=== PATIENT | female | born 1975 | race African-American/Black ===

== ENCOUNTER 2017-01-26 09:41 | Emergency (ER) | payer MEDICAID ==
[~2017-01-26] VITALS: Ht 175.3 cm; Wt 65.0 kg
[2017-01-26 11:35] VITALS: BP 142/88
== END 2017-01-26 12:27 | disposition home or self-care (01) ==
LOC: ER 12:27
DX: R05 Cough (principal); R06.02 Shortness of breath; F17.210 Nicotine dependence, cigarettes, uncomplicated; Z88.0 Allergy status to penicillin; F14.10 Cocaine abuse, uncomplicated
CPT/HCPCS: 71010; 81025; 99283

== ENCOUNTER 2017-03-04 15:36 | Emergency (ER) | payer MEDICAID ==
[~2017-03-04] VITALS: Ht 165.1 cm; Wt 60.0 kg
[2017-03-04 15:38] VITALS: BP 167/113
== END 2017-03-04 17:38 | disposition home or self-care (01) ==
LOC: ER 16:36
DX: A63.0 Anogenital (venereal) warts (principal); J04.0 Acute laryngitis; I10 Essential (primary) hypertension; F14.90 Cocaine use, unspecified, uncomplicated; Z88.0 Allergy status to penicillin
CPT/HCPCS: 99282

== ENCOUNTER 2017-05-01 17:30 | Emergency (ER) | payer MEDICAID, OTHER ==
[~2017-05-01] VITALS: Ht 175.3 cm; Wt 67.0 kg
[2017-05-01] MEDS ORDERED: IBUPROFEN 600MG TABLET PO STA (18:43)
[2017-05-01 19:25] LABS: BASOPHILS % 3.7 % (0.0-2.0); EOSINOPHILS % 6.7 % (0.0-5.0); HEMATOCRIT. 28.6 % (36.0-48.0); LYMPHOCYTES % 27.2 % (20.0-50.0); MEAN CORPUSCULAR HEMOGLOBIN 23.4 pg (28.0-32.0); MEAN CORPUSCULAR VOLUME 74.2 fL (81.0-99.0); MEAN PLATELET VOLUME 7.6 fl (7.4-10.4); MONOCYTES % 14.8 % (2.0-8.0); NEUTROPHILS % 47.6 % (40.0-76.0); PLATELET 443 x1000/uL (130-400); RED BLOOD CELL COUNT 3.85 mill/uL (4.2-5.4); RED CELL DISTRIBUTION WIDTH 19.4 % (11.6-14.6)
[2017-05-01 19:26] LABS: CHLORIDE 105 mEq/L (98-107)
[2017-05-01 19:31] LABS: CARBON DIOXIDE 26 mEq/L (21-32)
[2017-05-01 19:35] LABS: CREATINE KINASE 176 IU/L (26-192)
[2017-05-01] MEDS ORDERED: AMLODIPINE 5MG TABLET PO ONE (21:45)
[2017-05-01 22:23] VITALS: BP 168/110
== END 2017-05-01 22:23 | disposition home or self-care (01) ==
LOC: ER 17:30
DX: I16.0 Hypertensive urgency (principal); J45.909 Unspecified asthma, uncomplicated; I10 Essential (primary) hypertension; Z88.0 Allergy status to penicillin
CPT/HCPCS: 36415; 80053; 82550; 85025; 93005; 99285

== ENCOUNTER 2017-06-11 12:00 | Emergency (ER) | payer OTHER ==
[~2017-06-11] VITALS: Ht 175.3 cm; Wt 67.0 kg
[2017-06-11 13:13] VITALS: BP 120/88
== END 2017-06-11 13:30 | disposition home or self-care (01) ==
LOC: ER 12:25
DX: S70.361A Insect bite (nonvenomous), right thigh, initial encounter (principal); J45.909 Unspecified asthma, uncomplicated; I10 Essential (primary) hypertension; F17.200 Nicotine dependence, unspecified, uncomplicated; F11.10 Opioid abuse, uncomplicated; Z88.0 Allergy status to penicillin; W57.XXXA Bitten or stung by nonvenomous insect and other nonvenomous arthropods, initial encounter; Y93.89 Activity, other specified; Y92.89 Other specified places as the place of occurrence of the external cause; Y99.8 Other external cause status
CPT/HCPCS: 99283

== ENCOUNTER 2017-12-24 12:29 | Emergency (ER) | payer OTHER ==
[~2017-12-24] VITALS: Ht 175.3 cm; Wt 58.0 kg
[2017-12-24 12:57] VITALS: BP 118/98
== END 2017-12-24 15:30 | disposition left against medical advice (07) ==
LOC: ER 13:43
DX: N64.4 Mastodynia (principal); I10 Essential (primary) hypertension; J45.909 Unspecified asthma, uncomplicated; F17.200 Nicotine dependence, unspecified, uncomplicated; Z88.0 Allergy status to penicillin
CPT/HCPCS: 81025; 99282

== ENCOUNTER 2018-11-23 20:01 | Emergency (ER) | payer MEDICAID, OTHER ==
[~2018-11-23] VITALS: Ht 175.3 cm; Wt 70.0 kg
[2018-11-23] MEDS ORDERED: PREDNISONE 20MG TABLET PO STA (20:39)
[2018-11-23] MEDS ORDERED: ALBUTEROL (0.083%) 2.5MG/3ML NEB HHN STA (20:39)
[2018-11-23] MEDS ORDERED: IPRATROPIUM BROMIDE (0.02%) 0.5MG/2.5ML NEB HHN STA (20:39)
[2018-11-23] MEDS ORDERED: ENALAPRIL 5MG TABLET PO SCH (20:45)
[2018-11-23 23:40] VITALS: BP 168/98
== END 2018-11-23 23:41 | disposition home or self-care (01) ==
LOC: ER 22:39
DX: J45.901 Unspecified asthma with (acute) exacerbation (principal); I16.0 Hypertensive urgency; I10 Essential (primary) hypertension; F17.200 Nicotine dependence, unspecified, uncomplicated; Z88.0 Allergy status to penicillin
CPT/HCPCS: 71045; 81025; 94640; 99283; J7512; J7611

== ENCOUNTER 2019-04-13 22:43 | Inpatient (IN) | payer MEDICAID, OTHER ==
[~2019-04-13] VITALS: Ht 165.1 cm; Wt 66.7 kg
[2019-04-13] MEDS ORDERED: SODIUM CHLORIDE 0.9% 1,000 ML IV ONE (23:10)
[2019-04-13] MEDS ORDERED: FAMOTIDINE 20MG/2ML VIAL IV ONE (23:15)
[2019-04-13] MEDS ORDERED: DIPHENHYDRAMINE 50MG/ML VIAL IV ONE (23:15)
[2019-04-13] MEDS ORDERED: ONDANSETRON HCL 4MG/2ML INJ IV ONE (23:15)
[2019-04-13] MEDS ORDERED: DEXAMETHASONE 10 MG/ML VIAL IV ONE (23:15)
[2019-04-13] MEDS ORDERED: ETOMIDATE 2MG/ML 10ML VIAL IV ONE ×2 (23:43→23:45)
[2019-04-13] MEDS ORDERED: SUCCINYLCHOLINE CHLORIDE 200MG/10ML IV ONE ×2 (23:43→23:45)
[2019-04-13] MEDS ORDERED: MIDAZOLAM HCL 50 MG in DEXTROSE 5% WATER 40 ML IV ONE (23:45)
[2019-04-13] MEDS ORDERED: PROPOFOL 10MG/ML 100ML 100 ML IV ONE (23:45)
[2019-04-13 23:56] LABS: HEMOGLOBIN. 8.5 g/dL (12.0-16.0); MEAN PLATELET VOLUME 7.9 fl (7.4-10.4)
[2019-04-14] VITALS (75 sets, daily range): BP systolic 111–168; BP diastolic 66–105
[2019-04-14 00:04] LABS: CHLORIDE 104 mEq/L (98-107)
[2019-04-14 00:09] LABS: BASOPHILS % 3.7 % (0.0-2.0); HEMATOCRIT. 26.5 % (36.0-48.0); LYMPHOCYTES % 33.2 % (20.0-50.0); MEAN CORPUSCULAR HEMOGLOBIN 23.4 pg (28.0-32.0); MEAN CORPUSCULAR VOLUME 73.2 fL (81.0-99.0); MONOCYTES % 11.6 % (2.0-8.0); NEUTROPHILS % 46.5 % (40.0-76.0); PLATELET 542 x1000/uL (130-400); RED BLOOD CELL COUNT 3.63 mill/uL (4.2-5.4); RED CELL DISTRIBUTION WIDTH 18.6 % (11.6-14.6)
[2019-04-14 01:18] LABS: BG BASE EXCESS -5.2 mmol/L (-2.0-2.0); BG CARBOXYHEMOGLOBIN 1.9 % (0.5-1.5); BG DEOXYHEMOGLOBIN 5.3 % (0.0-5.0); BG FRACTION INSPIRED OXYGEN 40; BG HCO3 ACT 21.1 mmol/L (22.0-26.0); BG METHEMOGLOBIN 0.3 % (0.0-1.5); BG OXYGEN SATURATION 94.6 % (92.0-98.5); BG OXYHEMOGLOBIN 92.5 % (94.0-97.0); BG PCO2 44.8 mmHg (35.0-45.0); BG PH 7.291 (7.350-7.450); BG PO2 84.8 mmHg (75.0-100.0); BG SAMPLE SITE RIGHT RADIAL; BG TIDAL VOLUME(mL) 400 mL; BG TOTAL HEMOGLOBIN 10.1 g/dL (12.0-18.0); BG VENT MODE VENT - A/C; BG VENT RATE 16 set
[2019-04-14] MEDS ORDERED: MIDAZOLAM HCL 50 MG in DEXTROSE 5% WATER 40 ML IV ONE ×2 (01:45→02:00)
[2019-04-14] MEDS ORDERED: FENTANYL CITRATE/PF 500 MCG in SODIUM CHLORIDE 0.9% 40 ML IV PRN ×4 (02:00)
[2019-04-14] MEDS ORDERED: PROPOFOL 10MG/ML 100ML 100 ML IV ONE (03:30)
[2019-04-14] MEDS ORDERED: PHENYLEPHRINE 40 MG in DEXT 5% WATER 246 ML IV PRN (06:00)
[2019-04-14] MEDS ORDERED: NOREPINEPHRINE 16 MG in DEXT 5% WATER 234 ML IV PRN (06:00)
[2019-04-14] MEDS ORDERED: MIDAZOLAM HCL 100 MG in DEXT 5% WATER 80 ML IV PRN (06:00)
[2019-04-14] MEDS ORDERED: MAGNESIUM/ALUMINUM HYDROXIDE/SIMETHICONE 30ML UDC PO PRN (06:45)
[2019-04-14] MEDS ORDERED: DIPHENHYDRAMINE 50MG/ML VIAL IV PRN (06:45)
[2019-04-14] MEDS ORDERED: ONDANSETRON HCL 4MG/2ML INJ IV PRN (06:45)
[2019-04-14] MEDS ORDERED: DOCUSATE SODIUM 100MG CAPSULE PO PRN (06:45)
[2019-04-14] MEDS ORDERED: GUAIFENESIN 200MG/10ML SUGAR FREE UDC PO PRN (06:45)
[2019-04-14] MEDS: METHYLPREDNISOLONE SOD SUCC 125 MG/2 ML VIAL IV SCH ×4 (06:52→23:46)
[2019-04-14] MEDS: PROPOFOL 10MG/ML 100ML 100 ML IV PRN ×2 (07:42→11:50)
[2019-04-14] MEDS ORDERED: FAMOTIDINE 20MG/2ML VIAL IV SCH (09:00)
[2019-04-14] MEDS: MIDAZOLAM HCL 50 MG in DEXTROSE 5% WATER 40 ML IV PRN (09:07)
[2019-04-14 10:55] LABS: BG BASE EXCESS -3.3 mmol/L (-2.0-2.0); BG DEOXYHEMOGLOBIN 4.3 % (0.0-5.0); BG FRACTION INSPIRED OXYGEN 40; BG HCO3 ACT 21.5 mmol/L (22.0-26.0); BG METHEMOGLOBIN 0.3 % (0.0-1.5); BG OXYGEN SATURATION 95.7 % (92.0-98.5); BG OXYHEMOGLOBIN 95.4 % (94.0-97.0); BG PCO2 37.6 mmHg (35.0-45.0); BG PH 7.375 (7.350-7.450); BG PO2 83.8 mmHg (75.0-100.0); BG SAMPLE SITE RIGHT RADIAL; BG TIDAL VOLUME(mL) 450 mL; BG TOTAL HEMOGLOBIN 8.7 g/dL (12.0-18.0); BG VENT MODE VENT - A/C; BG VENT RATE 18 set
[2019-04-14] MEDS: FENTANYL CITRATE/PF 500 MCG in SODIUM CHLORIDE 0.9% 40 ML IV PRN ×3 (10:55→17:47)
[2019-04-14] MEDS ORDERED: POTASSIUM CHLORIDE 20MEQ/PACKET NG NR (11:00)
[2019-04-14] MEDS ORDERED: PROPOFOL 10MG/ML 100ML 100 ML IV PRN (11:30)
[2019-04-14] MEDS: DIPHENHYDRAMINE 50MG/ML VIAL IV SCH ×4 (11:49→23:46)
[2019-04-14 13:53] LABS: CLARITY URINE CLOUDY (CLEAR); COLOR URINE YELLOW (YELLOW); KETONES URINE NEGATIVE (NEGATIVE); LEUKOCYTE ESTERASE URINE NEGATIVE (NEGATIVE); NITRITE URINE NEGATIVE (NEGATIVE); OCCULT BLOOD URINE 2+ (NEGATIVE); PH URINE 5.5 (4.5-8.0); PROTEIN URINE NEGATIVE (NEGATIVE); SPECIFIC GRAVITY URINE 1.018 (1.005-1.030); UROBILINOGEN URINE 0.2 E.U./dL (0.2-1.0)
[2019-04-14 14:25] LABS: *AMPHETAMINES SCREEN URINE NEGATIVE (NEGATIVE); *BARBITURATES SCREEN URINE NEGATIVE (NEGATIVE)
[2019-04-14 14:26] LABS: CANNABINOID URINE SCREEN NEGATIVE (NEGATIVE); METHADONE URINE SCREEN NEGATIVE (NEGATIVE); OPIATES URINE SCREEN NEGATIVE (NEGATIVE); PHENCYCLIDINE URINE SCREEN NEGATIVE (NEGATIVE)
[2019-04-14 14:31] LABS: *BENZODIAZEPINES SCREEN URINE PRESUMTIVE POSITIVE (NEGATIVE); *COCAINE SCREEN URINE PRESUMTIVE POSITIVE (NEGATIVE)
[2019-04-14 14:59] LABS: CHLORIDE 109 mEq/L (98-107)
[2019-04-14 15:04] LABS: PHOSPHORUS 3.8 mg/dL (2.5-4.9)
[2019-04-14 15:05] LABS: HCG SCREEN NEGATIVE
[2019-04-14 15:08] LABS: CREATINE KINASE MB FRACTION 1.5 ng/mL (0.5-3.6)
[2019-04-14] MEDS: MONTELUKAST SODIUM 10MG TABLET NG SCH ×2 (16:11→21:40)
[2019-04-14] MEDS: LORAZEPAM 2MG/ML CPJ IV PRN (16:26)
[2019-04-14] MEDS ORDERED: ENOXAPARIN 40MG/0.4ML SYR SUBCUT SCH (18:00)
[2019-04-14] MEDS: FAMOTIDINE 20MG/2ML VIAL IV SCH (21:40)
[2019-04-14 23:23] LABS: TOTAL IRON BINDING CAPACITY 415 ug/dL (250-450)
[2019-04-14 23:26] LABS: CREATINE KINASE 97 IU/L (26-192)
[2019-04-14 23:27] LABS: CREATINE KINASE MB FRACTION < 1.0 ng/mL (0.5-3.6)
[2019-04-15] VITALS (94 sets, daily range): BP systolic 119–150; BP diastolic 64–101
[2019-04-15] MEDS: DIPHENHYDRAMINE 50MG/ML VIAL IV SCH ×6 (03:31→23:30)
[2019-04-15] MEDS: PROPOFOL 10MG/ML 100ML 100 ML IV PRN ×2 (03:42→15:41)
[2019-04-15] MEDS: FENTANYL CITRATE/PF 500 MCG in SODIUM CHLORIDE 0.9% 40 ML IV PRN ×2 (03:48→15:42)
[2019-04-15 05:03] LABS: CHLORIDE 108 mEq/L (98-107)
[2019-04-15 05:07] LABS: BASOPHILS % 0.1 % (0.0-2.0); HEMATOCRIT. 24.9 % (36.0-48.0); HEMOGLOBIN. 7.7 g/dL (12.0-16.0); LYMPHOCYTES % 7.7 % (20.0-50.0); MEAN CORPUSCULAR HEMOGLOBIN 22.8 pg (28.0-32.0); MEAN PLATELET VOLUME 8.2 fl (7.4-10.4); MONOCYTES % 4.9 % (2.0-8.0); NEUTROPHILS % 87.3 % (40.0-76.0); PLATELET 491 x1000/uL (130-400); RED BLOOD CELL COUNT 3.36 mill/uL (4.2-5.4); RED CELL DISTRIBUTION WIDTH 18.9 % (11.6-14.6)
[2019-04-15 05:13] LABS: LDL CHOLESTEROL 81 mg/dL (5-100)
[2019-04-15 05:14] LABS: HDL CHOLESTEROL 92 mg/dL (40-59)
[2019-04-15] MEDS: METHYLPREDNISOLONE SOD SUCC 125 MG/2 ML VIAL IV SCH ×4 (06:03→23:40)
[2019-04-15] MEDS: FAMOTIDINE 20MG/2ML VIAL IV SCH ×2 (08:17→20:47)
[2019-04-15 09:40] LABS: BG BASE EXCESS -0.8 mmol/L (-2.0-2.0); BG CARBOXYHEMOGLOBIN 0.7 % (0.5-1.5); BG DEOXYHEMOGLOBIN 2.9 % (0.0-5.0); BG FRACTION INSPIRED OXYGEN 40; BG HCO3 ACT 23.9 mmol/L (22.0-26.0); BG METHEMOGLOBIN 0.3 % (0.0-1.5); BG OXYGEN SATURATION 97.1 % (92.0-98.5); BG OXYHEMOGLOBIN 96.1 % (94.0-97.0); BG PCO2 39.4 mmHg (35.0-45.0); BG PH 7.401 (7.350-7.450); BG PO2 104.1 mmHg (75.0-100.0); BG SAMPLE SITE LEFT RADIAL; BG TIDAL VOLUME(mL) 450 mL; BG TOTAL HEMOGLOBIN 5.9 g/dL (12.0-18.0); BG VENT MODE VENT - A/C; BG VENT RATE 18 set
[2019-04-15] MEDS: IPRATROPIUM/ALBUTEROL 0.5-3(2.5)MG/3ML NEB HHN PRN (20:28)
[2019-04-15] MEDS: MONTELUKAST SODIUM 10MG TABLET NG SCH (20:47)
[2019-04-16] VITALS (42 sets, daily range): BP systolic 124–178; BP diastolic 70–105
[2019-04-16] MEDS: PROPOFOL 10MG/ML 100ML 100 ML IV PRN (02:12)
[2019-04-16] MEDS: DIPHENHYDRAMINE 50MG/ML VIAL IV SCH ×5 (03:24→20:19)
[2019-04-16] MEDS: IPRATROPIUM/ALBUTEROL 0.5-3(2.5)MG/3ML NEB HHN PRN ×4 (04:34→14:22)
[2019-04-16] MEDS: METHYLPREDNISOLONE SOD SUCC 125 MG/2 ML VIAL IV SCH ×3 (05:55→18:13)
[2019-04-16 06:05] LABS: HEMATOCRIT. 24.5 % (36.0-48.0); HEMOGLOBIN. 7.6 g/dL (12.0-16.0); MEAN CORPUSCULAR HEMOGLOBIN 22.8 pg (28.0-32.0); PLATELET 465 x1000/uL (130-400); RED BLOOD CELL COUNT 3.36 mill/uL (4.2-5.4); RED CELL DISTRIBUTION WIDTH 18.7 % (11.6-14.6)
[2019-04-16 06:11] LABS: CHLORIDE 107 mEq/L (98-107)
[2019-04-16 08:14] LABS: PLATELET ESTIMATE INCREASED
[2019-04-16] MEDS: FENTANYL CITRATE/PF 500 MCG in SODIUM CHLORIDE 0.9% 40 ML IV PRN (08:16)
[2019-04-16] MEDS: SODIUM CHLORIDE 0.9% 1,000 ML IV SCH ×2 (08:18→22:56)
[2019-04-16] MEDS: FAMOTIDINE 20MG/2ML VIAL IV SCH ×2 (08:19→21:13)
[2019-04-16] MEDS ORDERED: CEFEPIME 1,000 MG in DEXTROSE 5% WATER 50 ML IV SCH (09:00)
[2019-04-16 09:12] LABS: BG BASE EXCESS 1.5 mmol/L (-2.0-2.0); BG CARBOXYHEMOGLOBIN 0.3 % (0.5-1.5); BG DEOXYHEMOGLOBIN 2.3 % (0.0-5.0); BG FRACTION INSPIRED OXYGEN 40; BG HCO3 ACT 26.1 mmol/L (22.0-26.0); BG METHEMOGLOBIN 0.4 % (0.0-1.5); BG OXYGEN SATURATION 97.7 % (92.0-98.5); BG PCO2 41.2 mmHg (35.0-45.0); BG PO2 105.1 mmHg (75.0-100.0); BG SAMPLE SITE RIGHT RADIAL; BG TIDAL VOLUME(mL) 450 mL; BG TOTAL HEMOGLOBIN 8.3 g/dL (12.0-18.0); BG VENT MODE VENT - A/C; BG VENT RATE 18 set
[2019-04-16] MEDS: MIDAZOLAM HCL 50 MG in DEXTROSE 5% WATER 40 ML IV PRN ×2 (12:40→23:03)
[2019-04-16] MEDS: CLONIDINE 0.1MG TABLET PO PRN (16:34)
[2019-04-16] MEDS: HYDRALAZINE HCL 50MG TABLET PO SCH ×2 (18:13→21:13)
[2019-04-16] MEDS: IRON SUCROSE COMPLEX 100 MG/5 ML ML IV SCH (20:19)
[2019-04-16] MEDS: MONTELUKAST SODIUM 10MG TABLET NG SCH (21:13)
[2019-04-16] MEDS: AMLODIPINE 5MG TABLET PO SCH (21:13)
[2019-04-17] VITALS (43 sets, daily range): BP systolic 58–196; BP diastolic 30–128
[2019-04-17] MEDS: DIPHENHYDRAMINE 50MG/ML VIAL IV SCH ×7 (00:22→23:40)
[2019-04-17] MEDS: METHYLPREDNISOLONE SOD SUCC 125 MG/2 ML VIAL IV SCH ×5 (02:01→23:40)
[2019-04-17] MEDS: FENTANYL CITRATE/PF 500 MCG in SODIUM CHLORIDE 0.9% 40 ML IV PRN (05:28)
[2019-04-17 05:41] LABS: HEMATOCRIT. 23.8 % (36.0-48.0); HEMOGLOBIN. 7.5 g/dL (12.0-16.0); MEAN CORPUSCULAR HEMOGLOBIN 23.3 pg (28.0-32.0); MEAN CORPUSCULAR VOLUME 73.6 fL (81.0-99.0); MEAN PLATELET VOLUME 7.9 fl (7.4-10.4); PLATELET 365 x1000/uL (130-400); RED BLOOD CELL COUNT 3.23 mill/uL (4.2-5.4); RED CELL DISTRIBUTION WIDTH 18.6 % (11.6-14.6)
[2019-04-17 05:42] LABS: CHLORIDE 106 mEq/L (98-107)
[2019-04-17 07:28] LABS: PLATELET ESTIMATE NORMAL
[2019-04-17] MEDS: IPRATROPIUM/ALBUTEROL 0.5-3(2.5)MG/3ML NEB HHN PRN ×2 (08:53→12:17)
[2019-04-17] MEDS: FAMOTIDINE 20MG/2ML VIAL IV SCH ×2 (08:54→20:37)
[2019-04-17] MEDS: HYDRALAZINE HCL 50MG TABLET PO SCH ×2 (08:54→20:38)
[2019-04-17 09:25] LABS: BG BASE EXCESS 2.7 mmol/L (-2.0-2.0); BG CARBOXYHEMOGLOBIN 0.3 % (0.5-1.5); BG FRACTION INSPIRED OXYGEN 40; BG HCO3 ACT 27.5 mmol/L (22.0-26.0); BG METHEMOGLOBIN 0.3 % (0.0-1.5); BG OXYHEMOGLOBIN 94.4 % (94.0-97.0); BG PCO2 43.6 mmHg (35.0-45.0); BG PH 7.418 (7.350-7.450); BG PO2 79.8 mmHg (75.0-100.0); BG SAMPLE SITE RIGHT RADIAL; BG TIDAL VOLUME(mL) 450 mL; BG TOTAL HEMOGLOBIN 8.3 g/dL (12.0-18.0); BG VENT MODE VENT - A/C; BG VENT RATE 18 set
[2019-04-17] MEDS: AMLODIPINE 5MG TABLET PO SCH ×2 (09:46→20:38)
[2019-04-17 11:42] LABS: BG BASE EXCESS 1.5 mmol/L (-2.0-2.0); BG CARBOXYHEMOGLOBIN 0.3 % (0.5-1.5); BG DEOXYHEMOGLOBIN 4.4 % (0.0-5.0); BG FRACTION INSPIRED OXYGEN 40; BG HCO3 ACT 25.8 mmol/L (22.0-26.0); BG METHEMOGLOBIN 0.2 % (0.0-1.5); BG OXYGEN SATURATION 95.6 % (92.0-98.5); BG OXYHEMOGLOBIN 95.1 % (94.0-97.0); BG PCO2 38.8 mmHg (35.0-45.0); BG PO2 82.7 mmHg (75.0-100.0); BG PRESSURE SUPPORT 8; BG SAMPLE SITE RIGHT BRACHIAL; BG TOTAL HEMOGLOBIN 8.2 g/dL (12.0-18.0); BG VENT MODE VENT - CPAP
[2019-04-17] MEDS ORDERED: RACEPINEPHRINE 2.25% 0.5ML NEB VIAL HHN PRN (12:00)
[2019-04-17] MEDS: CLONIDINE 0.1MG TABLET PO PRN (12:13)
[2019-04-17] MEDS: LORAZEPAM 2MG/ML CPJ IV PRN (14:15)
[2019-04-17] MEDS: SODIUM CHLORIDE 0.9% 1,000 ML IV SCH ×2 (17:39→22:32)
[2019-04-17] MEDS: MONTELUKAST SODIUM 10MG TABLET NG SCH (20:38)
[2019-04-17] MEDS: IRON SUCROSE COMPLEX 100 MG/5 ML ML IV SCH (20:38)
[2019-04-17] MEDS: ACETAMINOPHEN 325MG TABLET PO PRN (22:30)
[2019-04-18] VITALS (23 sets, daily range): BP systolic 109–182; BP diastolic 69–103
[2019-04-18] MEDS: DIPHENHYDRAMINE 50MG/ML VIAL IV SCH ×3 (04:15→11:09)
[2019-04-18] MEDS: ACETAMINOPHEN 325MG TABLET PO PRN ×2 (04:39→11:09)
[2019-04-18 05:44] LABS: HEMATOCRIT. 23.9 % (36.0-48.0); HEMOGLOBIN. 7.4 g/dL (12.0-16.0); MEAN CORPUSCULAR HEMOGLOBIN 22.9 pg (28.0-32.0); MEAN CORPUSCULAR VOLUME 73.9 fL (81.0-99.0); MEAN PLATELET VOLUME 8.5 fl (7.4-10.4); PLATELET 331 x1000/uL (130-400); RED BLOOD CELL COUNT 3.23 mill/uL (4.2-5.4); RED CELL DISTRIBUTION WIDTH 18.5 % (11.6-14.6)
[2019-04-18] MEDS: METHYLPREDNISOLONE SOD SUCC 125 MG/2 ML VIAL IV SCH ×2 (06:04→11:09)
[2019-04-18] MEDS: SODIUM CHLORIDE 0.9% 1,000 ML IV SCH (06:06)
[2019-04-18 06:07] LABS: CHLORIDE 103 mEq/L (98-107)
[2019-04-18] MEDS: FAMOTIDINE 20MG/2ML VIAL IV SCH (08:50)
[2019-04-18] MEDS: AMLODIPINE 5MG TABLET PO SCH (08:50)
[2019-04-18] MEDS: HYDRALAZINE HCL 50MG TABLET PO SCH (08:50)
[2019-04-18 09:05] LABS: PLATELET ESTIMATE NORMAL
[2019-04-18 09:48] LABS: BG BASE EXCESS 5.8 mmol/L (-2.0-2.0); BG CARBOXYHEMOGLOBIN 0.2 % (0.5-1.5); BG DEOXYHEMOGLOBIN 6.4 % (0.0-5.0); BG FRACTION INSPIRED OXYGEN 21; BG METHEMOGLOBIN 0.3 % (0.0-1.5); BG OXYGEN SATURATION 93.6 % (92.0-98.5); BG OXYHEMOGLOBIN 93.1 % (94.0-97.0); BG PCO2 42.2 mmHg (35.0-45.0); BG PO2 71.4 mmHg (75.0-100.0); BG SAMPLE SITE RIGHT BRACHIAL; BG TOTAL HEMOGLOBIN 8.8 g/dL (12.0-18.0); BG VENT MODE ROOM AIR
[2019-04-18] MEDS: IPRATROPIUM/ALBUTEROL 0.5-3(2.5)MG/3ML NEB HHN PRN (14:23)
[2019-04-18] MEDS ORDERED: HYDR-4135 PO (15:55)
[2019-04-18] MEDS ORDERED: AMLO5TAB88 PO (15:57)
[2019-04-18] MEDS ORDERED: PREDNISONE 20MG TABLET PO SCH (18:20)
== END 2019-04-18 16:21 | disposition home or self-care (01) | DRG 811 ==
LOC: ER 22:43 → EDBEDREQTM 23:36 → EDBEDREQSVC 23:36 → EDBEDREQ 23:36 → CVICU 04-14 02:09 → EDBEDREQ 04-14 02:14 → EDBEDREQDT 04-14 02:14 → EDBEDREQTM 04-14 02:14 → ENRESERV 04-14 03:15
PROVIDERS: ADMIT Internal Medicine; ATTEND Internal Medicine
PROC: 5A1945Z Respiratory Ventilation, 24-96 Consecutive Hours (ICD-10-PCS; principal; 2019-04-14)
PROC: 0BH17EZ Insertion of Endotracheal Airway into Trachea, Via Natural or Artificial Opening (ICD-10-PCS; 2019-04-14)
PROC: 30233K1 Transfusion of Nonautologous Frozen Plasma into Peripheral Vein, Percutaneous Approach (ICD-10-PCS; 2019-04-14)
DX: T78.3XXA Angioneurotic edema, initial encounter (principal); J96.00 Acute respiratory failure, unspecified whether with hypoxia or hypercapnia; T78.02XA Anaphylactic reaction due to shellfish (crustaceans), initial encounter; D50.9 Iron deficiency anemia, unspecified; E87.6 Hypokalemia; F14.10 Cocaine abuse, uncomplicated; F17.200 Nicotine dependence, unspecified, uncomplicated; I10 Essential (primary) hypertension; J45.909 Unspecified asthma, uncomplicated; T46.4X5A Adverse effect of angiotensin-converting-enzyme inhibitors, initial encounter; Z88.1 Allergy status to other antibiotic agents; Z88.9 Allergy status to unspecified drugs, medicaments and biological substances; X58.XXXA Exposure to other specified factors, initial encounter; Y93.89 Activity, other specified; Y92.89 Other specified places as the place of occurrence of the external cause; Y99.8 Other external cause status
CPT/HCPCS: 31500; 36415; 36600; 51702; 71045; 80048; 80061; 80305; 82375; 82550; 82553; 82728; 82805; 82962; 83540; 83550; 83735; 84100; 84443; 84478; 84703; 86850; 86900; 86927; 87070; 93005; 93970; 94002; 94003; 94640; 96361; 96374; 96375; 96376; 99291; J0330; J0692; J1100; J1200; J1650; J2250; J2405; J2704; J2930; J3010; J3490; J7030; J7060; J7620; P9017

== ENCOUNTER 2019-06-28 12:45 | Inpatient (IN) | payer MEDICAID ==
[~2019-06-28] VITALS: Ht 175.3 cm; Wt 67.6 kg
[~2019-06-28 12:45] MED LIST: AMLO5TAB88 PO; HYDR-4135 PO
[2019-06-28] MEDS ORDERED: ACETAMINOPHEN 325MG TABLET PO STA (13:06)
[2019-06-28] MEDS ORDERED: SODIUM CHLORIDE 0.9% 1,000 ML IV ONE (13:06)
[2019-06-28] MEDS ORDERED: ONDANSETRON HCL 4MG/2ML INJ IV ONE (13:30)
[2019-06-28] MEDS ORDERED: LEVOFLOXACIN 500MG PREMIX 100 ML IV ONE (14:15)
[2019-06-28 15:02] LABS: CHLORIDE 102 mEq/L (98-107); HEMOGLOBIN. 8.9 g/dL (12.0-16.0); MEAN CORPUSCULAR HEMOGLOBIN 24.6 pg (28.0-32.0); MEAN CORPUSCULAR VOLUME 77.3 fL (81.0-99.0); PLATELET 313 x1000/uL (130-400); RED BLOOD CELL COUNT 3.62 mill/uL (4.2-5.4); RED CELL DISTRIBUTION WIDTH 19.5 % (11.6-14.6)
[2019-06-28 15:06] LABS: ETHANOL BLOOD < 10 mg/dL
[2019-06-28 15:13] LABS: CLARITY URINE CLEAR (CLEAR); COLOR URINE YELLOW (YELLOW); KETONES URINE NEGATIVE (NEGATIVE); LEUKOCYTE ESTERASE URINE NEGATIVE (NEGATIVE); NITRITE URINE NEGATIVE (NEGATIVE); OCCULT BLOOD URINE NEGATIVE (NEGATIVE); PH URINE 8.5 (4.5-8.0); PROTEIN URINE NEGATIVE (NEGATIVE); SPECIFIC GRAVITY URINE 1.013 (1.005-1.030); UROBILINOGEN URINE 0.2 E.U./dL (0.2-1.0)
[2019-06-28 15:44] LABS: PLATELET ESTIMATE NORMAL
[2019-06-28 15:53] LABS: METHADONE URINE SCREEN NEGATIVE (NEGATIVE); OPIATES URINE SCREEN NEGATIVE (NEGATIVE); PHENCYCLIDINE URINE SCREEN NEGATIVE (NEGATIVE)
[2019-06-28 15:54] LABS: CANNABINOID URINE SCREEN NEGATIVE (NEGATIVE)
[2019-06-28 15:56] LABS: *BENZODIAZEPINES SCREEN URINE NEGATIVE (NEGATIVE)
[2019-06-28 16:01] LABS: *AMPHETAMINES SCREEN URINE NEGATIVE (NEGATIVE); *BARBITURATES SCREEN URINE NEGATIVE (NEGATIVE)
[2019-06-28 16:08] LABS: *COCAINE SCREEN URINE PRESUMTIVE POSITIVE (NEGATIVE)
[2019-06-28] MEDS ORDERED: ALBUTEROL (0.083%) 2.5MG/3ML NEB HHN ONE (16:45)
[2019-06-29] VITALS: BP 120/79
[2019-06-29] MEDS ORDERED: ACETAMINOPHEN 650MG/20.3ML UDC PO PRN
[2019-06-29] MEDS ORDERED: ONDANSETRON HCL 4MG TABLET PO PRN
[2019-06-29] MEDS ORDERED: POTASSIUM CHLORIDE 20MEQ TABLET SR PO SCH
[2019-06-29 01:00] VITALS: BP 154/74
[2019-06-29] MEDS: SODIUM CHLORIDE 0.9% 1,000 ML IV SCH ×2 (01:00→15:25)
[2019-06-29] MEDS: HYDROCODONE/ACETAMINOPHEN 5/325MG TABLET PO PRN ×4 (01:29→15:37)
[2019-06-29] MEDS: IPRATROPIUM/ALBUTEROL 0.5-3(2.5)MG/3ML NEB HHN SCH ×6 (01:31→20:20)
[2019-06-29 04:00] VITALS: BP 109/76
[2019-06-29 08:56] VITALS: BP 104/67
[2019-06-29] MEDS: ENOXAPARIN 40MG/0.4ML SYR SUBCUT SCH ×2 (09:03→09:04)
[2019-06-29] MEDS ORDERED: METHYLPREDNISOLONE SOD SUCC 125 MG/2 ML VIAL IV NR (10:00)
[2019-06-29 12:05] LABS: HEMATOCRIT. 27.1 % (36.0-48.0); HEMOGLOBIN. 8.6 g/dL (12.0-16.0); MEAN CORPUSCULAR HEMOGLOBIN 24.4 pg (28.0-32.0); MEAN CORPUSCULAR VOLUME 77.3 fL (81.0-99.0); MEAN PLATELET VOLUME 7.9 fl (7.4-10.4); PLATELET 293 x1000/uL (130-400); RED BLOOD CELL COUNT 3.51 mill/uL (4.2-5.4); RED CELL DISTRIBUTION WIDTH 19.7 % (11.6-14.6)
[2019-06-29 12:33] LABS: CHLORIDE 105 mEq/L (98-107)
[2019-06-29 12:34] LABS: CHLORIDE 105 mEq/L (98-107)
[2019-06-29 12:59] LABS: PLATELET ESTIMATE NORMAL
[2019-06-29] MEDS ORDERED: LEVOFLOXACIN 500MG PREMIX 100 ML IV SCH (15:00)
[2019-06-29 15:30] VITALS: BP 121/79
[2019-06-29] MEDS: GUAIFENESIN/CODEINE 200-20MG/10ML UDC PO PRN (16:49)
[2019-06-29] MEDS: METHYLPREDNISOLONE SOD SUCC 40 MG/ML VIAL IV SCH (18:10)
[2019-06-29 20:00] VITALS: BP 133/77
[2019-06-30 00:37] VITALS: BP 134/81
[2019-06-30] MEDS: GUAIFENESIN/CODEINE 200-20MG/10ML UDC PO PRN ×2 (00:43→11:53)
[2019-06-30] MEDS: HYDROCODONE/ACETAMINOPHEN 5/325MG TABLET PO PRN ×3 (00:44→19:52)
[2019-06-30] MEDS: IPRATROPIUM/ALBUTEROL 0.5-3(2.5)MG/3ML NEB HHN SCH ×6 (01:01→20:54)
[2019-06-30] MEDS: METHYLPREDNISOLONE SOD SUCC 40 MG/ML VIAL IV SCH ×3 (01:29→17:57)
[2019-06-30 04:00] VITALS: BP 146/73
[2019-06-30] MEDS: SODIUM CHLORIDE 0.9% 1,000 ML IV SCH ×2 (05:12→18:04)
[2019-06-30 07:03] LABS: HEMATOCRIT. 26.6 % (36.0-48.0); HEMOGLOBIN. 8.7 g/dL (12.0-16.0); MEAN CORPUSCULAR HEMOGLOBIN 25.1 pg (28.0-32.0); MEAN CORPUSCULAR VOLUME 77.2 fL (81.0-99.0); MEAN PLATELET VOLUME 8.4 fl (7.4-10.4); PLATELET 344 x1000/uL (130-400); RED BLOOD CELL COUNT 3.45 mill/uL (4.2-5.4); RED CELL DISTRIBUTION WIDTH 19.7 % (11.6-14.6)
[2019-06-30 07:08] LABS: CHLORIDE 105 mEq/L (98-107)
[2019-06-30 08:00] VITALS: BP 139/67
[2019-06-30 12:00] VITALS: BP 149/91
[2019-06-30] MEDS ORDERED: DIPHENHYDRAMINE 50MG/ML VIAL IV PRN (14:00)
[2019-06-30 15:30] LABS: PLATELET ESTIMATE NORMAL
[2019-06-30] MEDS: CEFEPIME 2,000 MG in DEXT 5% WATER 100 ML IV SCH (15:54)
[2019-06-30 16:00] VITALS: BP 157/95
[2019-06-30] MEDS: CLONIDINE 0.1MG TABLET PO PRN (18:02)
[2019-06-30 20:00] VITALS: BP 169/98
[2019-07-01] VITALS: BP 171/87
[2019-07-01] MEDS: CLONIDINE 0.1MG TABLET PO PRN ×2 (00:54→05:51)
[2019-07-01] MEDS: ZOLPIDEM TARTRATE 5MG TABLET PO PRN ×2 (01:12→21:37)
[2019-07-01] MEDS: IPRATROPIUM/ALBUTEROL 0.5-3(2.5)MG/3ML NEB HHN SCH ×6 (01:26→21:18)
[2019-07-01 04:00] VITALS: BP 163/93
[2019-07-01] MEDS: METHYLPREDNISOLONE SOD SUCC 40 MG/ML VIAL IV SCH ×2 (05:51→18:03)
[2019-07-01] MEDS: CEFEPIME 2,000 MG in DEXT 5% WATER 100 ML IV SCH ×2 (05:52→18:03)
[2019-07-01 06:11] LABS: HIV SCREEN 4G Non Reactive (Non Reactive)
[2019-07-01] MEDS: SODIUM CHLORIDE 0.9% 1,000 ML IV SCH ×2 (06:47→18:31)
[2019-07-01 07:45] LABS: HEMATOCRIT. 25.7 % (36.0-48.0); MEAN CORPUSCULAR HEMOGLOBIN 24.2 pg (28.0-32.0); MEAN CORPUSCULAR VOLUME 77.9 fL (81.0-99.0); MEAN PLATELET VOLUME 8.5 fl (7.4-10.4); PLATELET 363 x1000/uL (130-400); RED BLOOD CELL COUNT 3.29 mill/uL (4.2-5.4); RED CELL DISTRIBUTION WIDTH 20.4 % (11.6-14.6)
[2019-07-01 08:00] VITALS: BP 158/95
[2019-07-01 08:00] LABS: CHLORIDE 104 mEq/L (98-107)
[2019-07-01] MEDS: ENOXAPARIN 40MG/0.4ML SYR SUBCUT SCH (08:59)
[2019-07-01] MEDS: HYDROCODONE/ACETAMINOPHEN 5/325MG TABLET PO PRN ×3 (09:01→18:23)
[2019-07-01 12:00] VITALS: BP 150/83
[2019-07-01 12:20] LABS: PLATELET ESTIMATE NORMAL
[2019-07-01 16:00] VITALS: BP 171/89
[2019-07-01 20:00] VITALS: BP 151/88
[2019-07-02] VITALS: BP 176/101
[2019-07-02] MEDS: IPRATROPIUM/ALBUTEROL 0.5-3(2.5)MG/3ML NEB HHN SCH ×5 (00:15→15:19)
[2019-07-02] MEDS: CLONIDINE 0.1MG TABLET PO PRN ×2 (00:56→14:00)
[2019-07-02 04:00] VITALS: BP 157/92
[2019-07-02] MEDS: METHYLPREDNISOLONE SOD SUCC 40 MG/ML VIAL IV SCH (06:25)
[2019-07-02] MEDS: CEFEPIME 2,000 MG in DEXT 5% WATER 100 ML IV SCH (06:25)
[2019-07-02] MEDS: HYDROCODONE/ACETAMINOPHEN 5/325MG TABLET PO PRN ×2 (06:34→13:59)
[2019-07-02 08:00] VITALS: BP 145/89
[2019-07-02] MEDS: SODIUM CHLORIDE 0.9% 1,000 ML IV SCH (08:59)
[2019-07-02] MEDS: ENOXAPARIN 40MG/0.4ML SYR SUBCUT SCH (09:00)
[2019-07-02] MEDS ORDERED: AMLODIPINE 5MG TABLET PO SCH (13:00)
[2019-07-02 15:15] VITALS: BP 172/103
== END 2019-07-02 16:45 | disposition home or self-care (01) | DRG 720 ==
LOC: ER 12:45 → 6WST 18:23 → ENRESERV 20:12
PROVIDERS: ADMIT Internal Medicine; ATTEND Internal Medicine
DX: A41.9 Sepsis, unspecified organism (principal); J96.01 Acute respiratory failure with hypoxia; J45.901 Unspecified asthma with (acute) exacerbation; F14.10 Cocaine abuse, uncomplicated; E87.6 Hypokalemia; J18.9 Pneumonia, unspecified organism; I10 Essential (primary) hypertension; F17.200 Nicotine dependence, unspecified, uncomplicated; T38.0X5A Adverse effect of glucocorticoids and synthetic analogues, initial encounter; Y92.89 Other specified places as the place of occurrence of the external cause; Z88.0 Allergy status to penicillin; Z88.8 Allergy status to other drugs, medicaments and biological substances
CPT/HCPCS: 36415; 71045; 80048; 80305; 80320; 81003; 84145; 87389; 87804; 93970; 94640; 96374; 99285; C1893; J0692; J1650; J1956; J2405; J2920; J2930; J7030; J7040; J7060; J7611; J7620; G0480

== ENCOUNTER 2019-07-22 11:08 | Emergency (ER) | payer MEDICAID ==
[~2019-07-22] VITALS: Ht 167.6 cm; Wt 59.0 kg
[2019-07-22 12:33] LABS: CHLORIDE 103 mEq/L (98-107); HEMOGLOBIN. 8.8 g/dL (12.0-16.0); MEAN CORPUSCULAR HEMOGLOBIN 24.1 pg (28.0-32.0); MEAN CORPUSCULAR VOLUME 76.5 fL (81.0-99.0); MEAN PLATELET VOLUME 7.5 fl (7.4-10.4); PLATELET 432 x1000/uL (130-400); RED BLOOD CELL COUNT 3.66 mill/uL (4.2-5.4); RED CELL DISTRIBUTION WIDTH 19.3 % (11.6-14.6)
[2019-07-22 12:49] LABS: PLATELET ESTIMATE INCREASED
[2019-07-22 15:44] VITALS: BP 127/86
== END 2019-07-22 15:38 | disposition home or self-care (01) ==
LOC: ER 11:08
DX: L03.116 Cellulitis of left lower limb (principal); F14.10 Cocaine abuse, uncomplicated; J45.909 Unspecified asthma, uncomplicated; I10 Essential (primary) hypertension; Z88.0 Allergy status to penicillin; Z88.8 Allergy status to other drugs, medicaments and biological substances; F17.290 Nicotine dependence, other tobacco product, uncomplicated
CPT/HCPCS: 36415; 80048; 85025; 99283; 99406; Z7610

== ENCOUNTER 2019-11-12 12:55 | Emergency (ER) | payer MEDICAID ==
[~2019-11-12] VITALS: Ht 170.2 cm; Wt 66.0 kg
[2019-11-12 15:39] LABS: CHLORIDE 103 mEq/L (98-107)
[2019-11-12 15:45] LABS: EOSINOPHILS % 2.8 % (0.0-5.0); HEMATOCRIT. 27.2 % (36.0-48.0); HEMOGLOBIN. 8.8 g/dL (12.0-16.0); LYMPHOCYTES % 19.4 % (20.0-50.0); MEAN CORPUSCULAR HEMOGLOBIN 23.7 pg (28.0-32.0); MEAN CORPUSCULAR VOLUME 73.2 fL (81.0-99.0); MEAN PLATELET VOLUME 8.1 fl (7.4-10.4); NEUTROPHILS % 61.8 % (40.0-76.0); PLATELET 348 x1000/uL (130-400); RED BLOOD CELL COUNT 3.72 mill/uL (4.2-5.4)
[2019-11-12 15:55] LABS: B-HCG QUANTITATIVE < 1 mIU/mL (<3)
[2019-11-12 16:30] LABS: *AMPHETAMINES SCREEN URINE NEGATIVE (NEGATIVE); *BENZODIAZEPINES SCREEN URINE NEGATIVE (NEGATIVE); METHADONE URINE SCREEN NEGATIVE (NEGATIVE); OPIATES URINE SCREEN NEGATIVE (NEGATIVE)
[2019-11-12 16:31] LABS: *BARBITURATES SCREEN URINE NEGATIVE (NEGATIVE); PHENCYCLIDINE URINE SCREEN NEGATIVE (NEGATIVE)
[2019-11-12] MEDS ORDERED: SODIUM CHLORIDE 0.9% 1,000 ML IV ONE (16:31)
[2019-11-12 16:35] LABS: *COCAINE SCREEN URINE PRESUMTIVE POSITIVE (NEGATIVE); CANNABINOID URINE SCREEN PRESUMTIVE POSITIVE (NEGATIVE)
[2019-11-12 17:35] VITALS: BP 113/59
== END 2019-11-12 17:37 | disposition home or self-care (01) ==
LOC: ER 12:55
DX: N93.9 Abnormal uterine and vaginal bleeding, unspecified (principal); I10 Essential (primary) hypertension; J45.909 Unspecified asthma, uncomplicated
CPT/HCPCS: 36415; 76856; 80053; 80305; 81025; 84702; 85025; 86850; 86900; 86901; 99284; J7030

== ENCOUNTER 2020-05-04 22:11 | Inpatient (IN) | payer MEDICAID ==
[~2020-05-04] VITALS: Ht 175.3 cm; Wt 69.9 kg
[2020-05-04] MEDS ORDERED: CLONIDINE 0.2MG TABLET PO NR (23:00)
[2020-05-05 00:10] LABS: HEMATOCRIT. 28.7 % (36.0-48.0); HEMOGLOBIN. 9.4 g/dL (12.0-16.0); LYMPHOCYTES % 28.4 % (20.0-50.0); MEAN CORPUSCULAR HEMOGLOBIN 26.4 pg (28.0-32.0); MEAN CORPUSCULAR VOLUME 80.8 fL (81.0-99.0); MEAN PLATELET VOLUME 8.2 fl (7.4-10.4); MONOCYTES % 14.1 % (2.0-8.0); NEUTROPHILS % 47.5 % (40.0-76.0); PLATELET 241 x1000/uL (130-400); RED BLOOD CELL COUNT 3.55 mill/uL (4.2-5.4); RED CELL DISTRIBUTION WIDTH 17.4 % (11.6-14.6)
[2020-05-05 00:15] LABS: CHLORIDE 106 mEq/L (98-107)
[2020-05-05 00:19] LABS: CLARITY URINE CLEAR (CLEAR); COLOR URINE YELLOW (YELLOW); KETONES URINE NEGATIVE (NEGATIVE); LEUKOCYTE ESTERASE URINE NEGATIVE (NEGATIVE); NITRITE URINE NEGATIVE (NEGATIVE); OCCULT BLOOD URINE NEGATIVE (NEGATIVE); PH URINE 7.5 (4.5-8.0); PROTEIN URINE NEGATIVE (NEGATIVE); SPECIFIC GRAVITY URINE 1.007 (1.005-1.030)
[2020-05-05 00:25] LABS: HCG SCREEN NEGATIVE
[2020-05-05] MEDS ORDERED: ONDANSETRON HCL 4MG/2ML INJ IV PRN (08:00)
[2020-05-05] MEDS ORDERED: DOCUSATE SODIUM 100MG CAPSULE PO PRN (08:00)
[2020-05-05] MEDS ORDERED: LORAZEPAM 0.5MG TABLET PO PRN (08:00)
[2020-05-05] MEDS ORDERED: ACETAMINOPHEN 325MG TABLET PO PRN (08:00)
[2020-05-05] MEDS ORDERED: CLONIDINE 0.1MG TABLET PO PRN (08:00)
[2020-05-05] MEDS ORDERED: POTASSIUM CHLORIDE 20MEQ TABLET SR PO NR (17:45)
[2020-05-05] MEDS: DEXAMETHASONE 4MG TABLET PO SCH (19:21)
[2020-05-05] MEDS: ENOXAPARIN 40MG/0.4ML SYR SUBCUT SCH (20:00)
[2020-05-05 21:42] LABS: TOTAL IRON BINDING CAPACITY 446 ug/dL (250-450)
[2020-05-06 01:00] VITALS: BP 135/90
[2020-05-06 04:00] VITALS: BP 123/71
[2020-05-06] MEDS: HYDROCODONE/ACETAMINOPHEN 5/325MG TABLET PO PRN ×4 (06:17→21:09)
[2020-05-06 06:59] LABS: BASOPHILS % 0.4 % (0.0-2.0); HEMOGLOBIN. 9.8 g/dL (12.0-16.0); LYMPHOCYTES % 9.6 % (20.0-50.0); MEAN CORPUSCULAR HEMOGLOBIN 26.3 pg (28.0-32.0); MEAN CORPUSCULAR VOLUME 80.5 fL (81.0-99.0); MEAN PLATELET VOLUME 8.7 fl (7.4-10.4); MONOCYTES % 3.7 % (2.0-8.0); NEUTROPHILS % 86.3 % (40.0-76.0); PLATELET 311 x1000/uL (130-400); RED BLOOD CELL COUNT 3.73 mill/uL (4.2-5.4); RED CELL DISTRIBUTION WIDTH 17.5 % (11.6-14.6)
[2020-05-06 07:11] LABS: CHLORIDE 104 mEq/L (98-107)
[2020-05-06 08:00] VITALS: BP 112/63
[2020-05-06] MEDS: HYDRALAZINE HCL 50MG TABLET PO SCH ×2 (08:13→16:01)
[2020-05-06] MEDS: AMLODIPINE 5MG TABLET PO SCH (08:13)
[2020-05-06] MEDS: DEXAMETHASONE 4MG TABLET PO SCH (08:14)
[2020-05-06] MEDS ORDERED: METHYLPREDNISOLONE SOD SUCC 40 MG/ML VIAL IV SCH (10:00)
[2020-05-06] MEDS: IPRATROPIUM/ALBUTEROL 0.5-3(2.5)MG/3ML NEB HHN SCH ×3 (11:46→20:43)
[2020-05-06 12:00] VITALS: BP 140/68
[2020-05-06] MEDS: GUAIFENESIN-DM 200MG-20MG/10ML UDC PO PRN ×2 (12:01→16:02)
[2020-05-06] MEDS: METHYLPREDNISOLONE SOD SUCC 40 MG/ML VIAL IV SCH ×2 (13:50→21:08)
[2020-05-06] MEDS: IRON SUCROSE COMPLEX 100 MG/5 ML ML IV SCH (13:59)
[2020-05-06 16:00] VITALS: BP 123/83
[2020-05-06 17:37] LABS: *AMPHETAMINES SCREEN URINE NEGATIVE (NEGATIVE); *BARBITURATES SCREEN URINE NEGATIVE (NEGATIVE); *BENZODIAZEPINES SCREEN URINE NEGATIVE (NEGATIVE)
[2020-05-06 17:38] LABS: CANNABINOID URINE SCREEN NEGATIVE (NEGATIVE); METHADONE URINE SCREEN NEGATIVE (NEGATIVE); PHENCYCLIDINE URINE SCREEN NEGATIVE (NEGATIVE)
[2020-05-06 17:42] LABS: *COCAINE SCREEN URINE PRESUMTIVE POSITIVE (NEGATIVE); OPIATES URINE SCREEN PRESUMTIVE POSITIVE (NEGATIVE)
[2020-05-06 20:00] VITALS: BP 140/74
[2020-05-06] MEDS: ENOXAPARIN 40MG/0.4ML SYR SUBCUT SCH (21:08)
[2020-05-07] VITALS: BP 161/90
[2020-05-07] MEDS: HYDROCODONE/ACETAMINOPHEN 5/325MG TABLET PO PRN ×3 (00:52→18:07)
[2020-05-07 04:00] VITALS: BP 118/76
[2020-05-07] MEDS: METHYLPREDNISOLONE SOD SUCC 40 MG/ML VIAL IV SCH ×3 (05:49→22:17)
[2020-05-07 07:33] LABS: CHLORIDE 106 mEq/L (98-107)
[2020-05-07 07:39] LABS: HEMATOCRIT. 30.5 % (36.0-48.0); HEMOGLOBIN. 9.6 g/dL (12.0-16.0); MEAN CORPUSCULAR HEMOGLOBIN 25.5 pg (28.0-32.0); MEAN CORPUSCULAR VOLUME 81.3 fL (81.0-99.0); MEAN PLATELET VOLUME 8.9 fl (7.4-10.4); PLATELET 298 x1000/uL (130-400); RED BLOOD CELL COUNT 3.75 mill/uL (4.2-5.4); RED CELL DISTRIBUTION WIDTH 17.7 % (11.6-14.6)
[2020-05-07] MEDS: IPRATROPIUM/ALBUTEROL 0.5-3(2.5)MG/3ML NEB HHN SCH ×5 (08:37→20:17)
[2020-05-07] MEDS: IRON SUCROSE COMPLEX 100 MG/5 ML ML IV SCH (09:26)
[2020-05-07] MEDS: HYDRALAZINE HCL 50MG TABLET PO SCH ×2 (09:26→17:58)
[2020-05-07] MEDS: AMLODIPINE 5MG TABLET PO SCH (09:27)
[2020-05-07 12:00] VITALS: BP 125/69
[2020-05-07 15:37] LABS: PLATELET ESTIMATE NORMAL
[2020-05-07 16:00] VITALS: BP 146/89
[2020-05-07] MEDS ORDERED: MONTELUKAST SODIUM 10MG TABLET PO SCH (17:00)
[2020-05-07] MEDS: GUAIFENESIN-DM 200MG-20MG/10ML UDC PO PRN (18:07)
[2020-05-07 20:00] VITALS: BP 139/76
[2020-05-07] MEDS: ENOXAPARIN 40MG/0.4ML SYR SUBCUT SCH (21:53)
[2020-05-07] MEDS: FAMOTIDINE 20MG TABLET PO SCH (21:53)
[2020-05-08] VITALS: BP 125/85
[2020-05-08] MEDS: IPRATROPIUM/ALBUTEROL 0.5-3(2.5)MG/3ML NEB HHN SCH ×4 (00:36→12:42)
[2020-05-08 04:00] VITALS: BP 144/84
[2020-05-08] MEDS: METHYLPREDNISOLONE SOD SUCC 40 MG/ML VIAL IV SCH ×2 (05:36→13:42)
[2020-05-08 07:03] LABS: HEMATOCRIT. 30.3 % (36.0-48.0); HEMOGLOBIN. 9.6 g/dL (12.0-16.0); MEAN CORPUSCULAR HEMOGLOBIN 25.9 pg (28.0-32.0); MEAN CORPUSCULAR VOLUME 81.2 fL (81.0-99.0); MEAN PLATELET VOLUME 8.8 fl (7.4-10.4); PLATELET 286 x1000/uL (130-400); RED BLOOD CELL COUNT 3.73 mill/uL (4.2-5.4); RED CELL DISTRIBUTION WIDTH 18.1 % (11.6-14.6)
[2020-05-08 07:05] LABS: CHLORIDE 104 mEq/L (98-107)
[2020-05-08 08:00] VITALS: BP 147/87
[2020-05-08] MEDS: HYDRALAZINE HCL 50MG TABLET PO SCH (08:12)
[2020-05-08] MEDS: AMLODIPINE 5MG TABLET PO SCH (08:12)
[2020-05-08] MEDS: IRON SUCROSE COMPLEX 100 MG/5 ML ML IV SCH (08:12)
[2020-05-08] MEDS: FAMOTIDINE 20MG TABLET PO SCH (08:12)
[2020-05-08] MEDS: HYDROCODONE/ACETAMINOPHEN 5/325MG TABLET PO PRN (08:13)
[2020-05-08] MEDS ORDERED: LORATADINE 10MG TABLET PO SCH (09:00)
[2020-05-08] MEDS ORDERED: NA PHOS,M-B/NA PHOS,DI-BA ENEMA 118ML PR SCH (09:00)
[2020-05-08 12:00] VITALS: BP 157/75
[2020-05-08] MEDS ORDERED: FAMO20TA8 PO (12:46)
[2020-05-08] MEDS ORDERED: MONT10TA21 PO (12:46)
[2020-05-08] MEDS ORDERED: CLAR10 PO (12:46)
[2020-05-08] MEDS ORDERED: AMLO10TA80 MT (12:46)
[2020-05-08] MEDS ORDERED: ALBU18HF2 IH (12:46)
[2020-05-08] MEDS ORDERED: P20 MT (12:46)
[2020-05-08] MEDS ORDERED: FERR325T6 MT (12:46)
[2020-05-08] MEDS ORDERED: HYDR-4001 MT (12:51)
[2020-05-08 14:41] VITALS: BP 157/75
[2020-05-08] MEDS ORDERED: HYDRALAZINE HCL 50MG TABLET PO SCH (21:00)
[2020-05-08 21:57] LABS: PLATELET ESTIMATE NORMAL
[2020-05-09] MEDS ORDERED: DEXAMETHASONE 4MG TABLET PO SCH (09:00)
== END 2020-05-08 15:40 | disposition home or self-care (01) | DRG 816 ==
LOC: ER 22:11 → 5WST 05-05 03:27 → EDBEDREQSVC 05-05 03:56 → EDBEDREQTM 05-05 03:56 → EDBEDREQ 05-05 03:56 → EDBEDREQDT 05-05 03:56 → ENRESERV 05-05 21:10 → CANRESERV 05-05 21:10 → ENRESERV 05-05 21:58
PROVIDERS: ADMIT Internal Medicine; ATTEND Internal Medicine
DX: T40.5X1A Poisoning by cocaine, accidental (unintentional), initial encounter (principal); J96.00 Acute respiratory failure, unspecified whether with hypoxia or hypercapnia; D50.9 Iron deficiency anemia, unspecified; D72.1 Eosinophilia; E87.6 Hypokalemia; F10.10 Alcohol abuse, uncomplicated; I16.1 Hypertensive emergency; R94.31 Abnormal electrocardiogram [ECG] [EKG]; Y90.9 Presence of alcohol in blood, level not specified; F14.10 Cocaine abuse, uncomplicated; J45.901 Unspecified asthma with (acute) exacerbation; Z20.828 Contact with and (suspected) exposure to other viral communicable diseases; J68.0 Bronchitis and pneumonitis due to chemicals, gases, fumes and vapors; Z88.8 Allergy status to other drugs, medicaments and biological substances; Z88.0 Allergy status to penicillin; Z79.899 Other long term (current) drug therapy; Y92.89 Other specified places as the place of occurrence of the external cause; Z68.22 Body mass index [BMI] 22.0-22.9, adult; E44.0 Moderate protein-calorie malnutrition
CPT/HCPCS: 36415; 71045; 80048; 80053; 80305; 81003; 81025; 83605; 83880; 84145; 84484; 84703; 85025; 87635; 93005; 94640; 99291; J1650; J2920; J8540; C9803-CS

== ENCOUNTER 2022-03-02 06:22 | Emergency (ER) | payer MEDICAID ==
[~2022-03-02] VITALS: Ht 177.8 cm; Wt 68.0 kg
[~2022-03-02 06:22] MED LIST changes: +ALBU18HF2 IH; +AMLO10TA80 MT; -AMLO5TAB88 PO; +CLAR10 PO; +FAMO20TA8 PO; +FERR325T6 MT; +HYDR-4001 MT; -HYDR-4135 PO; +MONT10TA21 PO; +P20 MT
[2022-03-02] MEDS ORDERED: IBUPROFEN 600MG TABLET PO ONE (06:45)
[2022-03-02] MEDS ORDERED: IBUP-2029 MT (08:50)
[2022-03-02 09:06] VITALS: BP 157/79
== END 2022-03-02 09:10 | disposition home or self-care (01) ==
LOC: ER 06:52
DX: J02.9 Acute pharyngitis, unspecified (principal); J45.909 Unspecified asthma, uncomplicated; I10 Essential (primary) hypertension; Z79.899 Other long term (current) drug therapy
CPT/HCPCS: 87070; 87430; 99283

== ENCOUNTER 2025-05-11 01:07 | Emergency (ER) | payer OTHER, MEDICAID ==
[~2025-05-11] VITALS: Ht 177.8 cm; Wt 73.0 kg
[~2025-05-11 01:07] MED LIST changes: +IBUP-2029 MT; +MONT-46 PO; -MONT10TA21 PO
[2025-05-11 01:10] VITALS: O2SAT 98
[2025-05-11] MEDS: DIPHENHYDRAMINE 50MG/ML VIAL IV ONE (02:30)
[2025-05-11] MEDS: LORAZEPAM 2MG/ML UD SYRINGE IV NR (02:30)
[2025-05-11] MEDS: SODIUM CHLORIDE 0.9% 1,000 ML IV ONE ×2 (02:30)
[2025-05-11 02:39] LABS: HEMATOCRIT. 21.4 % (36.0-48.0); MEAN PLATELET VOLUME 8.2 fl (7.4-10.4); PLATELET 811 x1000/uL (130-400); RED BLOOD CELL COUNT 3.12 mill/uL (4.2-5.4); RED CELL DISTRIBUTION WIDTH 34.1 % (11.6-14.6)
[2025-05-11 02:51] LABS: CREATININE 1.0 mg/dL (0.6-1.0)
[2025-05-11 02:52] LABS: ETHANOL BLOOD < 10 mg/dL (<10); HCG SCREEN NEGATIVE; UREA NITROGEN BLOOD 11 mg/dL (9-23)
[2025-05-11 02:53] LABS: ASPARTATE AMINOTRANSFERASE 23 IU/L (<34); BILIRUBIN DIRECT 0.2 mg/dL (<=3.0)
[2025-05-11 02:54] LABS: BILIRUBIN TOTAL 0.7 mg/dL (0.1-1.0); PROTEIN TOTAL 8.3 g/dL (6.0-8.3)
[2025-05-11 02:57] LABS: HEMOGLOBIN. 6.1 g/dL (12.0-16.0)
[2025-05-11] MEDS ORDERED: METRONIDAZOLE 500 MG PREMIX 100 ML IV ONE (03:45)
[2025-05-11] MEDS ORDERED: LEVOFLOXACIN 750MG PREMIX 150 ML IV ONE (03:45)
[2025-05-11 04:24] VITALS: BP 169/85; PULSE 82; RESP 23; TEMP 37.1; O2SAT 100
[2025-05-11 05:34] LABS: EOSINOPHILS % MANUAL 2.0 % (0.0-5.0); LYMPHOCYTES % MANUAL 3.0 % (20.0-60.0); MONOCYTES % MANUAL 3.0 % (2.0-8.0); NEUTROPHILS % MANUAL 92.0 % (45.0-75.0)
[2025-05-11 05:36] LABS: PLATELET ESTIMATE MARKEDLY DECREASED
[2025-05-11] MEDS ORDERED: IOHEXOL-300 100 ML BOTTLE ONE (06:56)
== END 2025-05-11 04:46 | disposition short-term general hospital (02) ==
LOC: ER 01:07 → EDBEDREQ 02:48 → EDBEDREQTM 02:48 → EDBEDREQSVC 02:48 → ER 04:46 → CMPBEDREQ 07:26
DX: R10.9 Unspecified abdominal pain (principal); F14.90 Cocaine use, unspecified, uncomplicated; I10 Essential (primary) hypertension; J45.909 Unspecified asthma, uncomplicated; Z88.0 Allergy status to penicillin; Z79.899 Other long term (current) drug therapy; Z98.890 Other specified postprocedural states
CPT/HCPCS: 80076; 80048; 80320; 84703; 83690; 85025; 86850; 86900; 86901; 36415; 71045; 74177; 96374; 96375; 99291; Q9967; J1200; J2060; J3490; J7030; Z7610; A4606; G0480

== ENCOUNTER 2025-08-14 08:23 | Emergency (ER) | payer MEDICAID, OTHER ==
[~2025-08-14] VITALS: Ht 175.3 cm; Wt 59.0 kg
[~2025-08-14 08:23] MED LIST changes: +IBUP-1455 MT; -IBUP-2029 MT
[2025-08-14 08:29] VITALS: O2SAT 97
[2025-08-14] MEDS ORDERED: MORPHINE SULFATE 4 MG/ML INJ (FOR IV/IM USE) IV ONE (09:00)
[2025-08-14] MEDS ORDERED: ONDANSETRON HCL 4MG/2ML INJ IV ONE (09:00)
[2025-08-14] MEDS ORDERED: METOCLOPRAMIDE HCL 10MG/2ML VIAL IV ONE (09:00)
[2025-08-14 09:24] LABS: HEMATOCRIT. 35.1 % (36.0-48.0); HEMOGLOBIN. 10.1 g/dL (12.0-16.0); MEAN PLATELET VOLUME 8.2 fl (7.4-10.4); PLATELET 357 x1000/uL (130-400); RED BLOOD CELL COUNT 4.73 mill/uL (4.2-5.4); RED CELL DISTRIBUTION WIDTH 20.0 % (11.6-14.6)
[2025-08-14 09:30] LABS: CLARITY URINE CLEAR (CLEAR); COLOR URINE YELLOW (YELLOW); GLUCOSE URINE NEGATIVE (NEGATIVE); KETONES URINE NEGATIVE (NEGATIVE); LEUKOCYTE ESTERASE URINE NEGATIVE (NEGATIVE); NITRITE URINE NEGATIVE (NEGATIVE); OCCULT BLOOD URINE NEGATIVE (NEGATIVE); PH URINE 7.0 (4.5-8.0); PROTEIN URINE NEGATIVE (NEGATIVE); SPECIFIC GRAVITY URINE 1.009 (1.005-1.030); UROBILINOGEN URINE 0.2 E.U./dL (0.2-1.0)
[2025-08-14 09:43] LABS: CREATININE 0.9 mg/dL (0.6-1.0); UREA NITROGEN BLOOD 7 mg/dL (9-23)
[2025-08-14 09:45] LABS: ASPARTATE AMINOTRANSFERASE 27 IU/L (<34); BILIRUBIN DIRECT 0.1 mg/dL (<=3.0); BILIRUBIN TOTAL 0.6 mg/dL (0.1-1.0); PROTEIN TOTAL 9.7 g/dL (6.0-8.3)
[2025-08-14 09:53] LABS: HCG SCREEN NEGATIVE
[2025-08-14 10:35] LABS: LYMPHOCYTES % MANUAL 11.0 % (20.0-60.0); MONOCYTES % MANUAL 8.0 % (2.0-8.0); NEUTROPHILS % MANUAL 81.0 % (45.0-75.0); PLATELET ESTIMATE NORMAL
[2025-08-14] MEDS: ONDANSETRON HCL 4MG/2ML INJ IV NR (11:39)
[2025-08-14] MEDS: METOCLOPRAMIDE HCL 10MG/2ML VIAL IV NR (11:39)
[2025-08-14] MEDS: MORPHINE SULFATE 4 MG/ML INJ (FOR IV/IM USE) IV NR (11:39)
[2025-08-14] MEDS ORDERED: IOHEXOL-300 100 ML BOTTLE ONE ×2 (12:39→23:28)
[2025-08-14] MEDS ORDERED: ONDA-239 PO (13:32)
[2025-08-14 13:45] VITALS: BP 148/82; PULSE 66; RESP 16; TEMP 36.7; O2SAT 99
== END 2025-08-14 14:14 | disposition home or self-care (01) ==
LOC: ER 08:23 → CANBEDREQ 13:32 → ER 14:14
DX: K80.20 Calculus of gallbladder without cholecystitis without obstruction (principal); I10 Essential (primary) hypertension; J45.909 Unspecified asthma, uncomplicated; Z88.0 Allergy status to penicillin
CPT/HCPCS: 80076; 80048; 81003; 81025; 84703; 83690; 83735; 85025; 36415; 74177; 93005; 96374; 96375; 99285; Q9967; J2765; J2405; J2270; Z7610